=== PATIENT | male | born 1950 | race Caucasian/White ===

== ENCOUNTER 2017-07-07 10:36 | Outpatient (CLI) | payer OTHER ==
--- NOTE | 2017-07-07 14:56 | PET ---
PET CT: HISTORY: A 67-year-old male with recently diagnosed bladder cancer and bone metastases. Exam is for initial s taging. COMPARISON: None. CORRELATION: CT scan of abdomen and pelvis dated 05/12/2017. Bone scan from the [facility] from 06/22/2017. TECHNIQUE: PET scanning with CT attenuation correction was performed from the base of the brain through the prox imal thighs, following the intravenous administration of 13.2 millicuries of F18 fluorodeoxyglucose i n the left wrist. Imaging was performed after an uptake interval of 48 minutes. FINDINGS: No hypermetabolism is seen in the neck, chest, axillae, abdomen, pelvis, or inguinal regions. Hyperm etabolic pulmonary nodules or liver or adrenal lesions are seen. Multiple hypermetabolic bony lesions are seen, including C2 (SUV 6.3), L5 (SUV 5.8), right S1 (SUV 3. 7), right superior acetabulum (SUV 5.3), right scapula (coracoid SUV 6.4 and inferior body SUV 5.1), left 10th rib, posteriorly (SUV 3.6), left 2nd rib (SUV 4.1), and right 6th rib (SUV 3.6). No hypermetabolic activity is seen in the mid sternum, where there is increased focal uptake on the b one scan. There is physiologic activity in the GI and tracts and brain. The CT scan is for attenuation correction and demonstrates no evidence of pleural effusions or ascite s. IMPRESSION: Multifocal osseous metastatic disease. POS: FRITZ
== END 2017-07-07 10:37 | disposition home or self-care (01) ==
LOC: PET 10:36
PROVIDERS: ATTEND Internal Medicine Medical Oncology
DX: C67.9 Malignant neoplasm of bladder, unspecified (principal); C79.51 Secondary malignant neoplasm of bone
CPT/HCPCS: 78815; A9552

== ENCOUNTER 2017-07-17 08:05 | Day surgery (SDC) | payer MEDICARE ==
[2017-07-16 13:56] VITALS: BMI 36.3
[2017-07-17 08:46] LABS: #Basophils 0.1 thou/uL (0.0-0.2); #Eosinphils 0.3 thou/uL (0.0-0.7); #Lymphocytes 1.8 thou/uL (1.20-3.40); #Monocytes 0.7 thou/uL (0.11-0.59); #Neutrophils 4.1 thou/uL (1.40-6.50); %Basophils 1.4 % (0.0-1.0); %Lymphocytes 25.3 % (21.0-51.0); %Neutrophils 59.3 % (42.0-75.0); Hemoglobin 13.6 g/dL (14.0-18.0); Mean Corpuscular HGB CONC 32.6 g/dL (32.0-36.0); Mean Corpuscular Hemoglobin 28.1 pg (27.0-31.0); Mean Corpuscular Volume 86.2 fl (80.0-94.0); Mean Platelet Volume 6.8 fL (7.4-10.4); Platelet Count 249 thou/uL (130-400); RBC Distribution Width 13.6 % (11.5-14.5); Red Blood Cell (RBC) Count 4.84 mill/uL (4.70-6.10)
[2017-07-17 08:52] LABS: INR-International Normal Ratio 1.1; PTT 29.6 SEC (22.9-36.1); Prothrombin Time 14.3 SEC (12.0-14.7)
[2017-07-17 12:01] VITALS: BP 117/76; TEMP 97.1
--- NOTE | 2017-07-17 12:17 | CT ---
CT RIGHT SCAPULAR LESION BIOPSY: INDICATIONS: History of bladder malignancy with osteoblastic metastatic disease. There is a suspicious lesion seen within the inferior tip of the right scapula. TECHNIQUE: Informed consent was obtained. The patient was placed prone on the CT table. Pre-procedure CT image s were obtained for guidance purposes only. The site overlying the inferior aspect of the right scap casi was marked. The site was prepped and draped in the usual sterile fashion. The patient underwent a consultation under the guidance of the radiology nurse and received 50 mcg of IV fentanyl and 1 mg of IV Versed. The site overlying the inferior tip of the right scapula was prepped and draped in th e usual sterile fashion. Buffered 1% Lidocaine was administered to the underlying subcutaneous tissu es. Under fluoroscopic guidance, a 12 gauge Bonopty biopsy penetration kit was guided down to the in feromedial aspect of the right scapula. The site was anesthetized utilizing 1% Lidocaine. A Bonopty drill was then utilized to gain access through the patient's scapular cortex. A Bonopty biopsy kit was then guided through the outer troch, and an approximately 7 mm bone biopsy core sample was obtain ed. Dr. Adler of the pathology department was present to verify adequacy of tissue sampling. Upon c onfirmation of adequacy of tissue sampling, the needle was removed to the level of the outer cortex, and 2 mL of 1% Lidocaine was then administered through the outer trocar needle to bathe the outer per iosteum with 1% Lidocaine. The needle was then completely removed. Pressure was held at the biopsy site until hemostasis was obtained. The patient tolerated the procedure without difficulty. IMPRESSION: Successful right scapular osteoblastic lesion biopsy. POS: FRITZ
== END 2017-07-17 13:15 | disposition home or self-care (01) ==
LOC: CT 08:05
PROVIDERS: ATTEND Internal Medicine Medical Oncology
PROC: 0PB53ZX Excision of Right Scapula, Percutaneous Approach, Diagnostic (ICD-10-PCS; principal; 2017-07-17)
DX: C79.51 Secondary malignant neoplasm of bone (principal); C67.2 Malignant neoplasm of lateral wall of bladder; Z79.84 Long term (current) use of oral hypoglycemic drugs; Z79.51 Long term (current) use of inhaled steroids; Z79.899 Other long term (current) drug therapy; Z88.2 Allergy status to sulfonamides
CPT/HCPCS: 20225; 77002; 85025; 85610; 85730; 88307; 88311; 88333; 88341; 88342; 99152; 99153

== ENCOUNTER 2017-07-30 08:37 | Day surgery (SDC) | payer MEDICARE ==
[2017-07-29 10:05] VITALS: BMI 36.1
[2017-07-30 09:25] VITALS: BP 125/77; TEMP 97.4
--- NOTE | 2017-07-30 14:11 | CT ---
CT GUIDED RIGHT SACRAL ALA BONE LESION BIOPSY: INDICATIONS: History of bladder cancer, with need for additional tissue for further cancer characterization. TECHNIQUE: Informed consent was obtained. Preprocedure electrolysis operator images were performed of the sacrum. These were p erformed for guidance purposes only. The site overlying the posterior aspect of the right sacrum was marked. The site was prepped and draped in the usual sterile fashion. Buffered 1% Lidocaine was ad ministered to the overlying subcutaneous tissues. Under CT fluoroscopic guidance, a 12 gauge Bonopty penetration kit was guided down to the lesion. The soft tissue overlying the biopsy site was anesth etized utilizing buffered 1% Lidocaine. A 13 gauge biopsy kit was then guided through the lesion. A n approximately 1 cm long core sample was obtained. This was submitted to Dr. Jones of the pathology department, who indicated that the tissue sample was adequate. An additional attempt was made to ob tain one additional core sample that proved to be unfruitful. The patient tolerated the biopsy witho ut difficulty. Pressure was held at the biopsy site upon removal of the needle until hemostasis was obtained. The site was then cleansed and bandaged. The patient received a total of 1 mg of IV Verse d and 100 mcg of IV fentanyl for the evaluation by the radiology nurse. IMPRESSION: Successful right sacral ala CT guided biopsy. POS: FRITZ
--- NOTE | 2017-07-31 16:04 | CT ---
CT GUIDED RIGHT SACRAL ALA BONE LESION BIOPSY: INDICATIONS: History of bladder cancer, with need for additional tissue for further cancer characterization. TECHNIQUE: Informed consent was obtained. Preprocedure general surgeon images were performed of the sacrum. These were p erformed for guidance purposes only. The site overlying the posterior aspect of the right sacrum was marked. The site was prepped and draped in the usual sterile fashion. Buffered 1% Lidocaine was ad ministered to the overlying subcutaneous tissues. Under CT fluoroscopic guidance, a 12 gauge Bonopty penetration kit was guided down to the lesion. The soft tissue overlying the biopsy site was anesth etized utilizing buffered 1% Lidocaine. A 13 gauge biopsy kit was then guided through the lesion. A n approximately 1 cm long core sample was obtained. This was submitted to Dr. Jones of the pathology department, who indicated that the tissue sample was adequate. An additional attempt was made to ob tain one additional core sample that proved to be unfruitful. The patient tolerated the biopsy witho ut difficulty. Pressure was held at the biopsy site upon removal of the needle until hemostasis was obtained. The site was then cleansed and bandaged. The patient received a total of 1 mg of IV Verse d and 100 mcg of IV fentanyl for the evaluation by the radiology nurse. IMPRESSION: Successful right sacral ala CT guided biopsy.
== END 2017-07-30 13:50 | disposition home or self-care (01) ==
LOC: CT 08:37
PROVIDERS: ATTEND Internal Medicine Medical Oncology
PROC: 0QB13ZX Excision of Sacrum, Percutaneous Approach, Diagnostic (ICD-10-PCS; principal; 2017-07-30)
DX: C79.52 Secondary malignant neoplasm of bone marrow (principal); C80.1 Malignant (primary) neoplasm, unspecified; E11.9 Type 2 diabetes mellitus without complications; J45.909 Unspecified asthma, uncomplicated; Z87.891 Personal history of nicotine dependence; Z85.51 Personal history of malignant neoplasm of bladder; Z88.2 Allergy status to sulfonamides; Z79.84 Long term (current) use of oral hypoglycemic drugs; Z79.51 Long term (current) use of inhaled steroids; Z79.899 Other long term (current) drug therapy
CPT/HCPCS: 20225; 77002; 88307; 88311; 88333; 88341; 88342; 99152; 99153

== ENCOUNTER 2021-05-02 11:14 | Outpatient (CLI) | payer MEDICARE ==
[2021-05-02 12:37] LABS: Hemoglobin 12.4 g/dL (13.5-17.5); Mean Corpuscular HGB CONC 32.1 g/dL (32.0-36.0); Mean Corpuscular Hemoglobin 29.7 pg (27.0-33.0); Mean Corpuscular Volume 92.6 fl (81.2-95.1); Mean Platelet Volume 9.9 fl (7.4-10.4); Platelet Count 294 10x3/uL (150-450); RBC Distribution Width 12.9 % (11.5-14.5); Red Blood Cell (RBC) Count 4.17 10x6/uL (4.32-5.72); White Blood Cell (WBC) Count 8.9 10x3/uL (3.5-10.5)
[2021-05-02 12:41] LABS: Bilirubin Neg (Negative); Blood, Urine 50 (Negative); Clarity Cloudy (Clear); Glucose, Urine (Dipstick) Normal (Negative); Ketone, Urine Negative (Negative); Leukocyte Negative (Negative); Nitrite Negative (Negative); Protein, Urine (Dipstick) Negative (Neg-Trace); Urobilinogen Normal mg/dL (Less than 2)
[2021-05-02 12:54] LABS: PTT 28.4 sec (22.0-33.0); Prothrombin Time 11.4 sec (9.5-12.1)
[2021-05-02 12:59] LABS: Anion Gap 16 mmol/L (10-20); BUN (Urea Nitrogen) 44 mg/dL (8.4-25.7); Calc. Creatinine Clearance 0 mL/min (70-130); Calcium 9.1 mg/dL (7.8-10.44); Carbon Dioxide 22 mmol/L (23-31); Chloride 108 mmol/L (98-107); Glucose 102 mg/dL (83-110); Potassium 4.9 mmol/L (3.5-5.1); Sodium 141 mmol/L (136-145)
[2021-05-02 13:09] LABS: Bacteria/HPF None Seen HPF (None Seen); Squamous Epithelial 0-3 HPF (0-3); WBC/HPF 0-3 HPF (0-3)
[2021-05-03 00:10] LABS: SARS-CoV-2 PCR by NAA Not Detected (NotDetected)
== END 2021-05-02 11:15 | disposition home or self-care (01) ==
LOC: LABBT 11:14
PROVIDERS: ATTEND Urology
DX: Z01.818 Encounter for other preprocedural examination (principal); N40.0 Benign prostatic hyperplasia without lower urinary tract symptoms; C67.9 Malignant neoplasm of bladder, unspecified; Z20.822 Contact with and (suspected) exposure to COVID-19
CPT/HCPCS: 80048; 81001; 85027; 85610; 85730; 87086; 93005; U0003; U0005; 93010

== ENCOUNTER 2021-05-07 06:36 | Day surgery (SDC) | payer MEDICARE ==
[2021-05-02 14:11] VITALS: BMI 33.7
[2021-05-07] MEDS ORDERED: Dexamethasone 20 MG/5 ML VIAL ONE (10:00)
[2021-05-07] MEDS ORDERED: Lidocaine 1% PF 5 ML VIAL ONE (10:00)
[2021-05-07] MEDS ORDERED: PROPOFOL 200 MG/20 ML VIAL ONE (10:00)
[2021-05-07] MEDS ORDERED: ePHEDrine 50 MG/ML VIAL ONE (10:00)
[2021-05-07] MEDS ORDERED: Ondansetron PF 4 MG/2 ML Vial ONE (10:00)
[2021-05-07] MEDS ORDERED: HYDROmorphone 0.5 MG/0.5 ML SYRINGE ONE (10:13)
[2021-05-07] MEDS ORDERED: Fentanyl 250 MCG/5 ML VIAL ONE ×2 (10:13→12:20)
[2021-05-07] MEDS ORDERED: Levofloxacin 500 mg/D5W 100 ml Premix Bag ONE (10:14)
[2021-05-07] MEDS ORDERED: Iothalamate Meglumine 60% 50 ML VIAL FS ONE (10:54)
[2021-05-07] MEDS ORDERED: hydrALAZINE 20 MG/ML VIAL ONE (12:12)
[2021-05-07] MEDS ORDERED: Phenazopyridine HCl 100 MG TAB ONE (13:55)
[2021-05-07] MEDS ORDERED: Oxybutynin 5 MG TAB ONE (13:55)
[2021-05-07] MEDS ORDERED: Ketorolac Tromethamine 30 MG/ML VIAL ONE (13:55)
[2021-05-07] MEDS ORDERED: HYDROcodone/Acetaminophen 5/325 mg Tablet ONE (14:34)
== END 2021-05-07 15:42 | disposition home or self-care (01) ==
LOC: SDC 06:36
PROVIDERS: ATTEND Urology
PROC: 0TBB8ZX Excision of Bladder, Via Natural or Artificial Opening Endoscopic, Diagnostic (ICD-10-PCS; principal; 2021-05-07)
PROC: 0VT08ZZ Resection of Prostate, Via Natural or Artificial Opening Endoscopic (ICD-10-PCS; 2021-05-07)
DX: N40.1 Benign prostatic hyperplasia with lower urinary tract symptoms (principal); C67.8 Malignant neoplasm of overlapping sites of bladder; E11.9 Type 2 diabetes mellitus without complications; M10.9 Gout, unspecified; N13.8 Other obstructive and reflux uropathy; G47.9 Sleep disorder, unspecified; Z79.899 Other long term (current) drug therapy; Z88.2 Allergy status to sulfonamides
CPT/HCPCS: 52240; 52601; 74420; Q9961; 88305; 88307; C2617; J0360; J1100; J1170; J1885; J1956; J2405; J2704; J3010; J3490

== ENCOUNTER 2021-06-18 05:32 | Day surgery (SDC) | payer MEDICARE ==
[2021-06-13 11:54] VITALS: BMI 34.4
[2021-06-18] MEDS ORDERED: Iothalamate Meglumine 60% 50 ML VIAL FS ONE (06:41)
[2021-06-18 06:45] LABS: Anion Gap 12 mmol/L (10-20); BUN (Urea Nitrogen) 25 mg/dL (8.4-25.7); Calc. Creatinine Clearance 64 mL/min (70-130); Calcium 8.8 mg/dL (7.8-10.44); Carbon Dioxide 22 mmol/L (23-31); Chloride 108 mmol/L (98-107); Glucose 103 mg/dL (83-110); Potassium 4.3 mmol/L (3.5-5.1); Sodium 138 mmol/L (136-145)
[2021-06-18] MEDS ORDERED: Fentanyl 250 MCG/5 ML VIAL ONE (07:09)
[2021-06-18] MEDS ORDERED: Levofloxacin 500 mg/D5W 100 ml Premix Bag ONE (07:24)
[2021-06-18] MEDS ORDERED: Ondansetron PF 4 MG/2 ML Vial ONE (07:30)
[2021-06-18] MEDS ORDERED: PROPOFOL 200 MG/20 ML VIAL ONE (07:30)
[2021-06-18] MEDS ORDERED: PHENYLEPHRINE-NS 100 MCG/ML 10 ML SYRINGE ONE (07:30)
[2021-06-18] MEDS ORDERED: ePHEDrine 50 MG/ML VIAL ONE (07:30)
[2021-06-18] MEDS ORDERED: Lidocaine 1% PF 5 ML VIAL ONE (07:30)
[2021-06-18] MEDS ORDERED: Dexamethasone 20 MG/5 ML VIAL ONE (07:30)
[2021-06-18] MEDS ORDERED: Fentanyl 100 MCG/2 ML VIAL ONE (08:15)
[2021-06-18] MEDS ORDERED: Phenazopyridine HCl 100 MG TAB ONE (08:19)
[2021-06-18] MEDS ORDERED: Oxybutynin 5 MG TAB ONE (08:19)
[2021-06-18] MEDS ORDERED: Ketorolac Tromethamine 30 MG/ML VIAL ONE (08:19)
== END 2021-06-18 10:38 | disposition home or self-care (01) ==
LOC: SDC 05:32
PROVIDERS: ATTEND Urology
PROC: 0T568ZZ Destruction of Right Ureter, Via Natural or Artificial Opening Endoscopic (ICD-10-PCS; principal; 2021-06-18)
PROC: 0T768DZ Dilation of Right Ureter with Intraluminal Device, Via Natural or Artificial Opening Endoscopic (ICD-10-PCS; 2021-06-18)
DX: D49.59 Neoplasm of unspecified behavior of other genitourinary organ (principal); N40.0 Benign prostatic hyperplasia without lower urinary tract symptoms; Z79.899 Other long term (current) drug therapy; Z88.2 Allergy status to sulfonamides
CPT/HCPCS: 52332; 52354; 74420; 80048; Q9961; 36415; C2617; J1100; J1885; J1956; J2405; J2704; J3010; J3490